=== PATIENT | female | born 1960 | race Caucasian/White ===

== ENCOUNTER 2023-10-21 09:05 | Emergency (ER) | payer BC, SELFPAY ==
[2023-10-21 09:09] VITALS: BP 142/94; PULSE 106; RESP 20; TEMP 36.7; O2SAT 97; BMI 40.7
--- NOTE | 2023-10-21 09:35 | ED_ITS ---
HPI - General Adult General Date Seen: 10/21/23 Chief complaint: Shortness of Breath/Dyspnea Stated complaint: Cough, short of breath, lethargy Time Seen by Provider: 10/21/23 09:35 History of Present Illness HPI narrative: 63-year-old female presents to the ER this morning for evaluation of cough, fatigue, body aches, nausea and vomiting. 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 She does have a history of sarcoidosis which makes her prone to pulmonary infections. No history of asthma or COPD. No history of diabetes or cancer or other immunosuppression. She is a nonsmoker. She developed a cough 2 days ago on Sunday. Yesterday cough is ongoing and she also developed significant fatigue, sleepiness, body aches, myalgias, and decreased energy. She also developed a little bit of chest tightness affecting both sides of her chest and mild shortness of breath yesterday. She has had a fever yesterday as high as 100.7. Nausea and vomiting started this morning. She is also having mild shortness of breath and some rib pain with coughing. No history of coronary disease. No history of DVT or PE. No recent travel. No leg swelling. No rashes. Related Data Home Medications Medication Instructions Recorded Confirmed atorvastatin 10 mg tablet 10 mg PO QPM 10/21/23 10/21/23 fluconazole 150 mg tablet mg PO 10/21/23 metformin 500 mg tablet 1,000 mg PO BID 10/21/23 10/21/23 semaglutide 0.25 mg or 0.5 mg (2 mg subcut 10/21/23 mg/3 mL) subcutaneous pen injector (Ozempic) venlafaxine 150 mg 150 mg PO QPM 10/21/23 10/21/23 capsule,extended release 24 hr Previous Rx's Medication Instructions Recorded albuterol sulfate 90 mcg/actuation 2 inh inhalation Q4H PRN shortness 10/21/23 aerosol inhaler of breath or wheezing #6.7 grams ondansetron 4 mg disintegrating 4 mg PO Q8H PRN nausea and 10/21/23 tablet vomiting #10 tabs oseltamivir 75 mg capsule (Tamiflu) 75 mg PO BID 5 days #10 caps 10/21/23 Allergies Allergy/AdvReac Type Severity Reaction Status Date / Time adhesive tape Allergy Mild hives, Verified 10/21/23 09:15 itchy [facility] Social History Smoking Status: Never smoker How often do you have a drink containing alcohol: never How often do you have six or more drinks on one occasion: Never AUDIT-C Alcohol total score: 0 Non-prescribed substance use: denies use Exam Narrative: Exam Narrative: Constitutional: Appears well-developed and well-nourished. Alert. Uncomfortable appearing. Just finish vomiting and has a small amount of liquidy emesis in her emesis bag. Mildly sweaty. Feels warm to the touch and febrile. Not diaphoretic or mottling or cyanotic. HENT: Head: Atraumatic. Nose: Nose normal. Mouth/Throat: Oral mucosa is clear but somewhat dry, not desiccated or cracked.. no trismus. Pharynx normal. Tonsils symmetric. No tonsillar enlargement, erythema, or exudate. Eyes: Conjunctivae normal. EOM normal. Pupils equal, round, and reactive to light. No scleral icterus. Neck: Normal range of motion. Neck supple. No tracheal deviation present. Cardiovascular: Tachycardic, about 105 beats per minute, regular rhythm. No gallop. No friction rub. No murmur heard. Symmetric radial artery pulses Pulmonary/Chest: Frequent dry cough. Effort normal. No stridor. No respiratory distress. Bilateral mild wheezes. Overall good aeration. No rales. No rhonchi . No tenderness. Abdominal: Soft. Bowel sounds normal. No distension. No mass. No tenderness. No rebound. No guarding. Musculoskeletal: RUE: Normal range of motion. No tenderness. No deformity LUE: Normal range of motion. No tenderness. No deformity RLE: Normal range of motion. No edema. No tenderness. No deformity LLE: Normal range of motion. No edema. No tenderness. No deformity Lymph: No cervical adenopathy. Neurological: Alert and oriented to person, place, and time. Normal strength. CN II-VII intact. No sensory deficit. GCS eye subscore is 4. GCS verbal subscore is 5. GCS motor subscore is 6. Normal coordination Skin: Skin is warm and dry. No rash noted. No pallor. Normal capillary refill. Psychiatric: Normal mood. Normal affect allowing for nausea and discomfort. Const: Vital Signs, click to edit/add: Vital Signs - 24 hr 10/21/23 09:09 10/21/23 09:53 10/21/23 10:21 Temperature 98.1 F Pulse Rate [Right Pulse Oximeter] 106 H 112 H 99 Respiratory Rate 20 Blood Pressure [Ri ght Upper Arm] 142/94 H Pulse Oximetry 97 97 95 Oxygen Delivery Me thod Room Air Room Air Room Air 10/21/23 10:40 10/21/23 11:15 Temperature Pulse Rate [Right Pulse Oximeter] 101 H 97 Respiratory Rate Blood Pressure [Ri ght Upper Arm] 158/84 H 145/72 H Pulse Oximetry 96 94 Oxygen Delivery Me thod Room Air Room Air Course Course ED Course: Recheck-nausea resolved after Zofran. Feeling better after fluids. Heart rate down into the 90s. After the nebulizer she feels like her chest tightness is much better. Repeat lung exam reveals a few scattered ongoing wheezes but much improved compared to initial exam. Tamiflu 75 mg p.o. administered. Reevaluation(s) Reevaluation #1: He recheck-labs back and a reassuring. Patient still feels much better. She is comfortable discharging home. Vital Signs Vital signs: Initial Vital Signs Temperature 98.1 F 10/21/23 09:09 Temperature Source Temporal Artery Scan 10/21/23 09:09 Pulse Rate 106 H 10/21/23 09:09 Respiratory Rate 20 10/21/23 09:09 Blood Pressure 142/94 H 10/21/23 09:09 Blood Pressure Mean 110 H 10/21/23 09:09 Blood Pressure Position Sitting 10/21/23 09:09 Pulse Oximetry 97 10/21/23 09:09 Oxygen Delivery Method Room Air 10/21/23 09:09 Vital Signs Temperature 98.1 F 10/21/23 09:09 Pulse Rate 106 H 10/21/23 09:09 Respiratory Rate 20 10/21/23 09:09 Blood Pressure 142/94 H 10/21/23 09:09 Pulse Oximetry 97 10/21/23 09:09 Oxygen Delivery Method Room Air 10/21/23 09:09 Temperature 98.1 F 10/21/23 09:09 Pulse Rate 97 10/21/23 11:15 Respiratory Rate 20 10/21/23 09:09 Blood Pressure 145/72 H 10/21/23 11:15 Pulse Oximetry 94 10/21/23 11:15 Oxygen Delivery Method Room Air 10/21/23 11:15 Medications Administered Medications: Discontinued Medications Generic Name Dose Route Start Last Admin Trade Name [place] PRN Reason Stop Dose Admin Albuterol/Ipratropium 1 neb 10/21/23 10:01 10/21/23 10:16 Iprat-Albut 0.5-2.5 Mg/3 Ml Neb IH 10/21/23 10:02 1 neb ONCE ONE Administration Sodium Chloride 1,000 mls @ 1,000 mls/hr 10/21/23 10:00 10/21/23 11:14 0.9 % Sodium Chloride 1000 Ml IV 10/21/23 10:59 Infused .Q1H ENRIQUETA Infusion Ondansetron HCl 4 mg 10/21/23 10:01 10/21/23 10:09 Ondansetron 2 Mg/Ml Inj IVP 10/21/23 10:02 4 mg ONCE ONE Administration Oseltamivir Phosphate 75 mg 10/21/23 10:24 10/21/23 10:37 Oseltamivir Phosphate 75 Mg Capsule PO 10/21/23 10:25 75 mg ONCE ONE Administration Medical Decision Making MDM Narrative Medical decision making narrative: This patient presents for evaluation of cough, fever, and myalgias, as well as nausea and vomiting.. This is consistent with an influenza like illness. He PCR is positive for influenza A. Negative for COVID, RSV. Patient meets criteria for treatment because the have high-risk features for severe illness, since she has sarcoidosis the. Additionally she has had symptoms barely less than 48 hours, meets criteria for treatment with oseltamvir and medications ordered as noted above. They are at risk for pneumonia but no signs of this are detected on today's visit. Chest x-ray reassuring. She does have wheezing which was likely viral induced bronchospasm. Her improved with her bronchodilator nebs given here in the ER. Will discharge home with prescription for albuterol. She actually says she has in previous albuterol inhaler from when she had pneumonia last fall so she will use that 1st, writhing feel the new prescription. Will also put her on Tamiflu. Zofran to prevent nausea and dehydration. Discussed influenza isolation precautions. 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 Close followup of primary care physician is indicated and return to the ED for high fevers > 103 for more than 48 hours more, increasing productive cough, shortness of breath, or confusion. There is no signs of serious bacterial infection such as bacteremia, meningitis, UTI/pyelonephritis, strep pharyngitis, etc. Lab Data Labs: Lab Results 10/21/23 10/21/23 Range/Units 09:17 10:00 WBC 5.49 (4.50-11.00) K/uL RBC 5.30 H (4.00-5.20) m/uL Hgb 15.3 (12.0-16.0) gm/dL Hct 46.3 (33.0-51.0) % MCV 87 (80-100) fL MCH 29 (26-34) pg MCHC 33 (32-36) gm/dL RDW Coeff of [place] 13.0 (11.5-15.5) % Plt Count 208 (140-440) K/uL Neut % (Auto) 76.5 H (42.0-72.0) % Lymph % (Auto) 12.9 L (20-44) % [place] % (Auto) 8.9 (0.0-11.0) % Eos % (Auto) 0.9 (0.0-7.0) % Baso % (Auto) 0.4 (0.0-3.0) % Neut # (Auto) 4.20 (1.7-7.0) K/uL Lymph # (Auto) 0.70 L (0.90-2.90) K/uL [place] # (Auto) 0.50 (0.00-0.90) K/UL Eos # (Auto) 0.05 (0.00-0.50) K/uL Baso # (Auto) 0.02 (0.00-0.30) K/uL Abs Immat Gran (auto) 0.02 (0.00-0.30) K/uL Imm/Tot Granulo (auto) 0.4 % Sodium 137 (135-149) mmol/L Potassium 4.1 (3.6-5.1) mmol/L Chloride 101 (96-114) mmol/L Carbon Dioxide 26 (20-32) mmol/L Anion Gap 10 (7-15) mEq/L BUN 12 (7-30) mg/dL Creatinine 0.7 (0.5-1.5) mg/dL Estimated Creat Clear 56.72 Estimated GFR 98 ml/min Glucose 183 H (60-115) mg/dL Calcium 9.1 (8.4-10.6) mg/dL SARS-CoV-2 (PCR) Negative SARS-CoV-2 (Negative) Influenza Type A (PCR) POSITIVE PCR FLU A A (Negative) Influenza Type B (PCR) Negative PCR FLU B (Negative) RSV (PCR) Negative PCR RSV (Negative) ECG Data Attestation: I personally reviewed and interpreted this ECG as follows: Interpretation: Normal sinus rhythm . Rate 96 [place] 150. QRS axis normal axis. No pathologic Q-waves. ST segment/T wave: No ST segment elevation or depression. Normal T-waves. QTc: 452 Discharge Plan Discharge Clinical Impression: Influenza A, Acute bronchospasm, Vomiting Patient Disposition: Home, Self-Care Condition: Stable Instructions: Influenza (DC), Acute Nausea and Vomiting (DC), Bronchospasm (ED) Additional Instructions: As we discussed, please come back to the ER right away if you have worsening symptoms; especially if you have worsening trouble breathing, high fever, weakness, dizziness, uncontrolled vomiting, or dehydration. Use albuterol every 4 hours if needed for shortness of breath or chest tightness to treat wheezing. Use Zofran if needed for nausea. Tried drink plenty of fluids and stay hydrated. At solid foods when you feel up to it. You can return to work when your symptoms are improving and after fever has been gone for 24 hours. Prescriptions: New oseltamivir [Tamiflu] 75 mg capsule 75 mg PO BID 5 Days Qty: 10 0RF albuterol sulfate 90 mcg/actuation HFA aerosol inhaler 2 inh inhalation Q4H PRN (Reason: shortness of breath or wheezing) Qty: 6.7 0RF ondansetron 4 mg tablet,disintegrating 4 mg PO Q8H PRN (Reason: nausea and vomiting) Qty: 10 0RF No Action metformin 500 mg tablet 1,000 mg PO BID atorvastatin 10 mg tablet 10 mg PO QPM fluconazole 150 mg tablet PO venlafaxine 150 mg capsule,extended release 24hr 150 mg PO QPM Ozempic 0.25 mg or 0.5 mg (2 mg/3 mL) pen injector subcut Follow Up/Referrals: Bernadette Galicia PA-C [Primary Care Provider] - Stand Alone Forms: [employer] Info Instructions
[2023-10-21 09:53] VITALS: PULSE 112; O2SAT 97
--- NOTE | 2023-10-21 09:54 | CRLHL7_ITS ---
For Patients: As a result of the Cures Act, medical imaging exams and procedure reports are released immediately into your electronic medical record. You may view this report before your referring provider. If you have questions, please contact your health care provider. INDICATION: Cough. Right lower lobe rales. COMPARISON: Chest x-ray dated 10 May 2020. FINDINGS: PA and lateral chest x-rays show a normal cardiac silhouette. The lungs show no focal pulmonary opacities. Sharp pleural margins. No pneumothorax. IMPRESSION: No focal pulmonary opacities. No pneumothorax. Dictated by Douglas Marrero MD @ 10/21/2023 11:13:54 AM Dictated by: Douglas Marrero MD @ 10/21/2023 11:14:03 (Electronically Signed)
[2023-10-21 10:09] LABS: PCR FLU A POSITIVE PCR FLU A (Negative); PCR FLU B Negative PCR FLU B (Negative); PCR RSV Negative PCR RSV (Negative); SARS PCR* Negative SARS-CoV-2 (Negative)
[2023-10-21] MEDS: ONDANSETRON 2 MG/ML inj 4 MG IVP (10:09)
[2023-10-21] MEDS: 0.9 % SODIUM CHLORIDE 1000 ml 1,000 ML IV (10:09)
[2023-10-21 10:10] LABS: Basophils Absolute Auto 0.02 K/uL (0.00-0.30); Basophils Percent Auto 0.4 % (0.0-3.0); Eosinophils Absolute Auto 0.05 K/uL (0.00-0.50); Eosinophils Percent Auto 0.9 % (0.0-7.0); Hematocrit 46.3 % (33.0-51.0); Hemoglobin* 15.3 gm/dL (12.0-16.0); Immature Granulocytes Abs Auto 0.02 K/uL (0.00-0.30); Immature Granulocytes Pct Auto 0.4 %; Lymphocytes Percent Auto 12.9 % (20-44); Mean Corpuscular HGB Conc 33 gm/dL (32-36); Mean Corpuscular Hemoglobin 29 pg (26-34); Mean Corpuscular Volume 87 fL (80-100); Monocytes Percent Auto 8.9 % (0.0-11.0); Neutrophils Percent Auto 76.5 % (42.0-72.0); Platelet Count* 208 K/uL (140-440); White Blood Count* 5.49 K/uL (4.50-11.00)
[2023-10-21] MEDS: IPRAT-ALBUT 0.5-2.5 MG/3 ML NEB 1 NEB IH (10:16)
[2023-10-21 10:20] LABS: Slide Review Reflex No
[2023-10-21 10:21] VITALS: PULSE 99; O2SAT 95
[2023-10-21 10:23] LABS: Chloride* 101 mmol/L (96-114); Potassium* 4.1 mmol/L (3.6-5.1); Sodium* 137 mmol/L (135-149)
[2023-10-21 10:25] LABS: Creatinine* 0.7 mg/dL (0.5-1.5); Est. Creatinine Clearance* 56.72; Estimated Glomerular Filt Rate 98 ml/min
[2023-10-21 10:26] LABS: Anion Gap 10 mEq/L (7-15); Blood Urea Nitrogen* 12 mg/dL (7-30); Calcium* 9.1 mg/dL (8.4-10.6); Carbon Dioxide* 26 mmol/L (20-32); Glucose* 183 mg/dL (60-115)
[2023-10-21] MEDS: OSELTAMIVIR PHOSPHATE 75 MG CAPSULE PO (10:37)
[2023-10-21 10:40] VITALS: BP 158/84; PULSE 101; O2SAT 96
[2023-10-21 11:15] VITALS: BP 145/72; PULSE 97; O2SAT 94
== END 2023-10-21 11:53 | disposition home or self-care (01) ==
PROVIDERS: Emergency Provider Emergency Medicine; PCP Physician Assistant
DX: J10.2 Influenza due to other identified influenza virus with gastrointestinal manifestations (principal); J98.01 Acute bronchospasm
CPT/HCPCS: 36415; 71046; 80048; 85025; 87631; 93005; 94640; 96361; 96374; 99284; 99285; A9270; J2405; J7030

== ENCOUNTER 2023-12-29 06:09 | Emergency (ER) | payer BC, SELFPAY ==
[2023-12-29 06:22] VITALS: BP 141/88; PULSE 91; RESP 18; TEMP 37.1; O2SAT 96; BMI 40.7
--- NOTE | 2023-12-29 06:36 | ED.GENADULT ---
HPI - General Adult General Chief complaint: Edema Stated complaint: right side facial swelling Time Seen by Provider: 12/29/23 06:27 History of Present Illness HPI narrative: Patient is a 63-year-old woman who over last 24 hours has had increased swelling and pain in the right parotid. She has no ear pain no mouth pain no pharynx pain no fevers no chills no night sweats no cough no shortness of breath. She has been placing warm compresses on the right side of her jaw but has had no improvement. No similar symptoms previously. Her comorbidities include diabetes and hypertension. Related Data Home Medications Medication Instructions Recorded Confirmed atorvastatin 10 mg tablet 10 mg PO QPM 10/21/23 10/21/23 fluconazole 150 mg tablet mg PO 10/21/23 metformin 500 mg tablet 1,000 mg PO BID 10/21/23 10/21/23 semaglutide 0.25 mg or 0.5 mg (2 mg subcut 10/21/23 mg/3 mL) subcutaneous pen injector (Ozempic) venlafaxine 150 mg 150 mg PO QPM 10/21/23 10/21/23 capsule,extended release 24 hr Previous Rx's Medication Instructions Recorded albuterol sulfate 90 mcg/actuation 2 inh inhalation Q4H PRN shortness 10/21/23 aerosol inhaler of breath or wheezing #6.7 grams ondansetron 4 mg disintegrating 4 mg PO Q8H PRN nausea and 10/21/23 tablet vomiting #10 tabs oseltamivir 75 mg capsule (Tamiflu) 75 mg PO BID 5 days #10 caps 10/21/23 Allergies Allergy/AdvReac Type Severity Reaction Status Date / Time adhesive tape Allergy Mild hives, Verified 10/21/23 09:15 itchy Review of Systems Status of ROS: Reports: 10 or more systems reviewed and unremarkable except as noted in History and below [facility] Social History Smoking Status: Never smoker How often do you have a drink containing alcohol: never How often do you have six or more drinks on one occasion: Never AUDIT-C Alcohol total score: 0 Non-prescribed substance use: denies use Exam Narrative: Exam Narrative: EXAM GENERAL: Patient appears comfortable. She does have significant swelling over the right parotid. Mild regional lymphadenopathy also noted. EYES: No scleral icterus. ENT: Tympanic membranes and oropharynx normal. THYROID: no thyroid nodules or thyromegaly. LYMPH: No supraclavicular or cervical lymphadenopathy. SKIN: Visible skin seen during exam normal or with benign process only. EXT: No dependent lower extremity pedal edema. HEART: Regular rate and rhythm with no murmurs, rubs, or gallops. LUNGS: Clear to auscultation bilaterally with no crackles or wheezes. ABD: Soft, non tender, non distended. PSYCH: Good eye contact, speech is not pressured. Const: Vital Signs, click to edit/add: Vital Signs - 24 hr 12/29/23 06:22 Temperature 98.8 F Pulse Rate [Left P ulse Oximeter] 91 Respiratory Rate 18 Blood Pressure [Ri ght Upper Arm] 141/88 H Pulse Oximetry 96 Oxygen Delivery Me thod Room Air Course Course ED Course: Patient seen and examined. Vital Signs Vital signs: Initial Vital Signs Temperature 98.8 F 12/29/23 06:22 Temperature Source Oral 12/29/23 06:22 Pulse Rate 91 12/29/23 06:22 Pulse Rhythm Regular 12/29/23 06:22 Respiratory Rate 18 12/29/23 06:22 Blood Pressure 141/88 H 12/29/23 06:22 Blood Pressure Mean 105 12/29/23 06:22 Blood Pressure Position Sitting 12/29/23 06:22 Pulse Oximetry 96 12/29/23 06:22 Oxygen Delivery Method Room Air 12/29/23 06:22 Vital Signs Temperature 98.8 F 12/29/23 06:22 Pulse Rate 91 12/29/23 06:22 Respiratory Rate 18 12/29/23 06:22 Blood Pressure 141/88 H 12/29/23 06:22 Pulse Oximetry 96 12/29/23 06:22 Oxygen Delivery Method Room Air 12/29/23 06:22 Temperature 98.8 F 12/29/23 06:22 Pulse Rate 91 12/29/23 06:22 Respiratory Rate 18 12/29/23 06:22 Blood Pressure 141/88 H 12/29/23 06:22 Pulse Oximetry 96 12/29/23 06:22 Oxygen Delivery Method Room Air 12/29/23 06:22 Medical Decision Making MDM Narrative Medical decision making narrative: Patient presents with right-sided parotitis without significant symptoms of sepsis. He is able to eat and drink. She has otherwise normal exam. I did consider imaging holes laboratory studies been do not believe that would be helpful. I also do not believe that she has systemic mumps says her symptoms are unilateral. I did place her on Augmentin 875 p.o. b.i.d. as well as warm compresses and lemon drops. If symptoms worsen I would recommend return for IV antibiotics and full laboratory and imaging exam. Differential diagnosis includes but not limited to paratitis mumps viral syndrome otitis media TMJ mastoiditis. Discharge Plan Discharge Clinical Impression: Acute parotitis Condition: Stable Instructions: Sialoadenitis (ED) Additional Instructions: Augmentin Lemon drops Tylenol Motrin Warm compresses Activity Level: No Restrictions Discharge Diet: Regular Prescriptions: No Action metformin 500 mg tablet 1,000 mg PO BID atorvastatin 10 mg tablet 10 mg PO QPM fluconazole 150 mg tablet PO venlafaxine 150 mg capsule,extended release 24hr 150 mg PO QPM Ozempic 0.25 mg or 0.5 mg (2 mg/3 mL) pen injector subcut oseltamivir [Tamiflu] 75 mg capsule 75 mg PO BID 5 Days Qty: 10 0RF albuterol sulfate 90 mcg/actuation HFA aerosol inhaler 2 inh inhalation Q4H PRN (Reason: shortness of breath or wheezing) Qty: 6.7 0RF ondansetron 4 mg tablet,disintegrating 4 mg PO Q8H PRN (Reason: nausea and vomiting) Qty: 10 0RF Follow Up/Referrals: Bernadette Galicia PA-C [Primary Care Provider] - Stand Alone Forms: [employer] Info Instructions
--- NOTE | 2023-12-29 10:49 | ED.NURSE ---
Pt called ED stating that she received a printed rx from Dr. Avitia but it was never signed. Reviewed Doctor's dictation and printed Rx with Pt. Called Anabel Oliveira and gave verbal order for Augmentin 875mg PO BID x7 days, no refills.
== END 2023-12-29 06:51 | disposition home or self-care (01) ==
LOC: ED 06:45
PROVIDERS: Emergency Provider Internal Medicine; PCP Physician Assistant
DX: K11.20 Sialoadenitis, unspecified (principal)
CPT/HCPCS: 99283

== ENCOUNTER 2025-01-28 09:45 | Emergency (ER) | payer BC, SELFPAY ==
--- OUTSIDE RECORDS SUMMARY | 2025-01-28 09:48 | XMS_ITS | Clinical Summary ---
Author Organization [facility] Address [address] [place] [address] Care Team Providers Care Stamp Redemption Clerk Name Role Phone Unavailable Primary Care Provider Unavailabl e Source Comments Patient records contain information from all sites at [facility]. For routine questions regarding patient records, call [phone] during business hours, M-F 8:00 AM - 5:00 PM Central Time. Record requests for emergency care only can be directed to [phone] at any time.[facility] Allergies No known active allergies Medications methylPREDNISolo ne (MedroL DosePak) 4 mg tablet Follow package directions. 21 tablet 04/28/2024 Active amoxicillin-pot clavulanate (Augmentin) 875-125 mg per tablet Take 1 tablet by mouth 2 (two) times a day. 20 tablet 04/28/2024 Active Social History Tobacco Use Types Packs/Day Years Used Date Smoking Tobacco: Never Assessed [facility] Utilities Answer Date Recorded In the past 12 months has e [employer], oil, or water [employer] threatened to shut off services in your home? No 08/11/2024 Exercise Vital Sign Answer Date Recorde d On average, how many days pe r week do you engage in moderate to strenuous exercise (like a brisk walk)? 0 days 08/11/2024 On average, how many minutes do you engage in exercise at this level? 0 min 08/11/2024 Hunger Vital Sign Answer Date Recorded Within the past 12 months, y ou worried that your food would run out before you got the money to buy more. Never true 08/11/20 Within the past 12 months, t he food you bought just didn't last and you didn't have money to get more. Never true 08/11/2024 PRAPARE - Transportation Answer Date Re corded In the past 12 months, has l ack of transportation kept you from medical appointments or from getting medications? No 07/19 In the past 12 months, has l ack of transportation kept you from meetings, work, or from getting things needed for daily living? No 08/11/2024 Nutrition Answer Date Recorded On average, how many serving s of fruits and vegetables do you eat per day (serving size is equal to 1 cup or approximately the size of a tennis ball)? 3-5 08/11/2024 Dental Answer Date Recorded Dental: Regular Dentist No 08/11/20 Employment Answer Date Recorded Employment status Employed and actively working without restrictions 08/11/2024 Housing Stability Answer Date Recorded What is your living situation today? I have a [facility] place to live 08/11/2024 Comments Unknown Sex and Gender Information Value Date Recorded Sex Assigned at Female 08/11/2024 2:20 AM HALL DIRECTOR Legal Sex Female 11:51 AM HALL DIRECTOR Gender Identity Female 08/11/2024 2:20 AM HALL DIRECTOR Sexual Orientation Straight 08/11/2024 2: 20 AM HALL DIRECTOR Plan of Treatment Health Maintenance Due Date Last Done Comments CT Colonography 1961 Cologuard 1961 Colonoscopy 1961 Colorectal Cancer Screening 1961 FIT 1961 HIV Screening 1961 Hepatitis C Screening 1961 Zoster Vaccines (1 of 2) 2011 Pneumococcal vaccine (50+ years) (2 of 2 - PCV) 03/09/2012 03/09/2011 DTaP,Tdap,and Td Vaccines (2 - Td or Tdap) 05/30/2021 05/30/2011 COVID-19 Vaccine (3 - season) 2024 06/13/2021, 05/11/2021 Influenza Vaccine (#1) 2024 8, 10/17/2016, 06/28/2015, Additional history exists Depression Screening (Annual PHQ-2) 09/17/2024 Mammogram 09/18/2024 09/18/2023, 10/2023, 08/22/2022, Additional history exists Fasting Glucose for Diabetes Screening 01/10/2027 01/11/2024, 01/18/2023, 04/18/2022, Additional history exists Lipid (Cholesterol) Screening 01/10/2029 01/11/2024, 01/18/2023 IPV Vaccines Aged Out No longer eligi ble based on patient's age to complete this topic Insurance [address] [place] [id number] [facility]
--- OUTSIDE RECORDS SUMMARY | 2025-01-28 09:48 | XMS_ITS | Clinical Summary ---
Author Organization [place] Address [facility] [place] [address] Care Team Providers Care Security Systems Administrator Name Role Phone Cierra Marie MD Primary Care Provider [phone] Allergies No known active allergies Medications venlafaxine (EFFEXOR-XR) 150 MG 24 hr capsule Take 150 mg by mouth daily Active Active Problems Problem Noted Date Diagnosed Date Suspected COVID-19 virus infection 12/26/2019 Social History Tobacco Use Types Packs/Day Years Used Date Smoking Tobacco: Never Alcohol Use Standard Drinks/Week Comments No 0 (1 standard drink = 0.6 oz pur e alcohol) Adolescent Education Answer Date Record ed Getting School Help Needed Not on file 06/23 Comments Unknown Sex and Gender Information Value Date Recorded Sex Assigned at Not on file Legal Sex Female 3:39 AM 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 Gender Identity Not on file Sexual Orientation Not on file Last Filed Vital Signs Vital Sign Reading Time Taken Comments Blood Pressure 145/91 05/27/2020 5:30 PM CDT Pulse 109 05/27/2020 5:30 PM CDT Temperature 36.6 C (97.8 F) 05/27/2020 12:28 PM CDT Respiratory Rate 20 05/27/2020 12:28 PM CDT Oxygen Saturation 98% 05/27/2020 5:30 PM CDT Inhaled Oxygen Concentration - - Weight 113.4 kg (250 lb) 05/27/2020 12:28 PM CDT Height 170.2 cm (5' 7) 05/27/2020 12:28 PM CDT Body Mass Index 39.16 05/27/2020 12:28 PM CDT Plan of Treatment Health Maintenance Due Date Last Done Comments ADVANCE CARE PLANNING 1961 ANNUAL REVIEW OF HM ORDERS 1961 CT COLONOGRAPHY 1961 FIT 1961 FLEX SIG 1961 MAMMO SCREENING 1961 sDNA (Cologuard) 1961 YEARLY PREVENTIVE VISIT 1964 COLONOSCOPY 1971 COLORECTAL CANCER SCREENING 1971 HIV SCREENING 1976 HEPATITIS C SCREENING 1979 PAP 1982 LIPID 2001 ZOSTER IMMUNIZATION (1 of 2) 2011 Pneumococcal Vaccine: 50+ Years (2 of 2 - PCV) 03/09/2012 03/09/2011 DTAP/TDAP/TD IMMUNIZATION (2 - Td or Tdap) 05/30/2021 05/30/2011, 10/07/2003, 12/20/1994 DIABETES SCREENING 05/27/2023 05/27/2020, 12/26/2019 COVID-19 Vaccine ( - season) 2024 06/13/2021, 05/11/2021 PHQ-2 (once per calendar year) 2024 INFLUENZA VACCINE (Season Ended) 2025 07/08/2018, 10/17/2016, 06/28/2015, Additional history exists RSV VACCINE (1 - 1-dose 75+ series) 2036 HPV IMMUNIZATION Aged Out No longer e ligible based on patient's age to complete this topic MENINGITIS IMMUNIZATION Aged Out No l onger eligible based on patient's age to complete this topic Procedures Procedure Name Priority Date/Time Associated Diagnosis Comments BASIC METABOLIC PANEL STAT 05/27/2020 1:02 PM CDT from Last 3 Months or Most Recently Relevant to Health Maintenance Results * (ABNORMAL) Basic metabolic panel (05/27/2020 1:02 PM CDT) Sodium 137 133 - 144 mmol/L 05/27/2020 1:[address] [facility] Potassium 4.2 3.4 - 5.3 mmol/L [facility]/27[facility]2020 [facility] Chloride 104 94 - 109 mmol/L 05/27/2020 1:[address] [facility] Carbon Dioxide 27 20 - 32 mmol/L 05/27/2020 1:[address] [facility] Anion Gap 6 3 - 14 mmol/L 05/27/2020 1:[address] [facility] Glucose 226(H) 70 - 99 mg/dL 05/27/2020 1:[address] [facility] Urea Nitrogen 12 7 - 30 mg/dL 05/27/2020 1:[address] [facility] Creatinine 0.69 0.52 - 1.04 mg/dL 05/27/2020 1:32 PM [facility] GFR Estimate >90 >60 mL/min/{1. 73_m2} 05/27/2020 1:[address] [facility] Comment: Non GFR Calc Starting 09/03/2018, serum creatinine based estimated GFR (eGFR) will be calculated using the Chronic Kidney Disease Epidemiology Collaboration (CKD-EPI) equation. GFR Estimate If Black >90 >60 mL/min/{1. 73_m2} 05/27/2020 1:[address] [facility] Comment: GFR Calc Starting 09/03/2018, serum creatinine based estimated GFR (eGFR) will be calculated using the Chronic Kidney Disease Epidemiology Collaboration (CKD-EPI) equation. Calcium 8.9 8.5 - 10.1 mg/dL 05/27/2020 1:[address] [facility] Blood specimen (specimen) 05/27/2020 1:02 PM CDT 05/27/2020 1:12 PM CDT us Garrett Richardson DO LAB - BLOOD ORDERABLES F inal Result [facility] [address] [place] [address], [facility] [phone] from Last 3 Months or Most Recently Relevant to Health Maintenance Insurance [id number] [place] [id number] [employer] Advance Directives For more information, please contact: [phone] * Full Code (Latest Code Status on File) Date Activated Date Inactivated Comments 12/27/2019 12:01 PM 05/27/2020 12:23 PM Question Answer Comments Code status determined by: Discussion with jackson nt/legal decision maker Care Teams Security Systems Administrator Relationship Specialty Start Date End Date Cierra Marie MD PCP - General Family Practice 10/18/14
--- OUTSIDE RECORDS SUMMARY | 2025-01-28 09:48 | XMS_ITS | Patient Health Record ---
Author Organization [facility], [facility] Address [address] [place] [address] Support Name Relationship Address Phone Sofia Blue Guarantor Unknown [phone] Reason For Referral No Information Plan Of Treatment No Information Insurance Providers Payer Name Payer Address Payer Phone Subscriber Number Group Number Insured Name Patient Relationship to Insured Coverage Start Date Coverage End Date [facility] [address] [id number] [phone] Sofia Blue Self - patient is the insured
--- OUTSIDE RECORDS SUMMARY | 2025-01-28 09:48 | XMS_ITS | Clinical Summary ---
Author Organization [facility] Address [address] [place] [id number] Care Team Providers Care Real Estate Sales Agent Name Role Phone Bernadette Galicia Primary Care Provider [phone] Allergies Active Allergy Reactions Criticality Noted Date Comments Adhesive Tape Itching Medications omega-3 fatty acids-vitamin E (FISH OIL) 1,000 mg cap Take by mouth. 0 07/11/20 12 Active cholecalciferol (VITAMIN D-3) 2,000 unit capsule Take 1 capsule by mouth once daily. 0 11/21/19 18 Active CPAPIndications :Obstructive sleep apnea,Fatigue, unspecified type CPAP machine for home use at pressure: 4.6-16 cmw , Heated humidifier x 1 q 5 yr, Humidifier chamber x 1 q 6 mo, nasal mask x1 q 3mos, with cushion x 2 q mo, Heated tubing x 1 q 3 mo, Headgear x 1 q 6 mo, Filters: Disposable x 2 q mo non-disposable filters x1 q 6mo, Length of Need: 99 months, Frequency of use: Daily 1 Each 05/31/20 21 Active albuterol HFA (PRO-AIR; VENTOLIN; PROVENTIL) 90 mcg/actuation inhaler Inhale by mouth. 10/21/19 24 Active nebulizer accessories kitIndications: Influenza A,Wheezing For home use. Length of need: prn 1 Kit 10/25/19 24 Active blood-glucose meterIndication s:Type 2 diabetes mellitus without complication, without long-term current use of insulin (HC) Dispense meter covered by pts insurance. 1 Each 08/09/20 24 Active lancetsIndicati ons:Type 2 diabetes mellitus without complication, without long-term current use of insulin (HC) As directed. Test 1-2 times per day. 200 Each 3 08/09/20 24 Active blood sugar diagnostic stripIndication s:Type 2 diabetes mellitus without complication, without long-term current use of insulin (HC) Dispense item covered by pt ins. E11.9 NIDDM type II - Test 2 times/day. Reason: High A1C 200 Each 3 08/09/20 24 Active NebulizerIndica tions:Sarcoidos is,Wheezing Nebulizer, disposable neb kit x 4, reuseable neb kit x 1, mask x 1, filters x 1. Frequency of use: daily; Medication: albuterol Length of need: prn months 1 Each 09/02/20 24 Active pen tirzepatide 10 mg/0.5 mL penIndications: Type 2 diabetes mellitus without complication, without long-term current use of insulin (HC) Inject 10 mg subcutaneous once weekly. 6 mL 2 01/07/20 25 Active losartan 50 mg tabletIndicatio ns:HTN (hypertension) Take 1 Tablet (50 mg) by mouth once daily. 90 Tablet 3 01/07/20 25 Active atorvastatin 10 mg tabletIndicatio ns:Type 2 diabetes mellitus without complication, without long-term current use of insulin (HC) Take 1 Tablet (10 mg) by mouth once daily. 90 Tablet 3 01/07/20 25 Active metFORMIN 500 mg Extended-Releas e tabletIndicatio ns:Type 2 diabetes mellitus without complication, without long-term current use of insulin (HC) Take 2 Tablets (1,000 mg) by mouth two times daily with meals. 360 Tablet 1 01/07/20 25 Active venlafaxine 150 mg Extended-Releas e capsuleIndicati ons:Situational mixed anxiety and depressive disorder Take 1 Capsule (150 mg) by mouth once daily with evening meal. 90 Capsule 3 01/07/20 25 Active albuterol 0.083% (2.5 mg/3 mL) neb solutionIndicat ions:Influenza A,Wheezing Inhale 3 mL (2.5 mg) via a nebulizer every 6 hours if needed for Cough 1st choice. 180 mL 10/25/19 24 025 Discontin ued(*Med complete/ Regimen complete/ Level of care change) metFORMIN (GLUCOPHAGE XR) 500 mg Extended-Releas e tabletIndicatio ns:Type 2 diabetes mellitus without complication, without long-term current use of insulin (HC) TAKE TWO TABLETS BY MOUTH TWICE A DAY WITH MEALS 360 Tablet 10/13/19 25 025 Discontin ued(*Med complete/ Regimen complete/ Level of care change) atorvastatin (LIPITOR) 10 mg tabletIndicatio ns:Type 2 diabetes mellitus without complication, without long-term current use of insulin (HC) Take 1 Tablet (10 mg) by mouth at bedtime. 90 Tablet 10/13/19 25 025 Discontin ued(*Med complete/ Regimen complete/ Level of care change) atorvastatin (LIPITOR) 10 mg tabletIndicatio ns:Type 2 diabetes mellitus without complication, without long-term current use of insulin (HC) Take 1 Tablet (10 mg) by mouth once daily. 90 Tablet 10/14/19 25 025 Discontin ued(Reord er (E-cancel not sent)) metFORMIN (GLUCOPHAGE XR) 500 mg Extended-Releas e tabletIndicatio ns:Type 2 diabetes mellitus without complication, without long-term current use of insulin (HC) Take 2 Tablets (1,000 mg) by mouth two times daily with meals. 180 Tablet 10/14/19 25 025 Discontin ued(Reord er (E-cancel not sent)) venlafaxine (EFFEXOR XR) 150 mg Extended-Releas e capsuleIndicati ons:Situational mixed anxiety and depressive disorder Take 1 Capsule (150 mg) by mouth once daily with evening meal. 90 Capsule 10/14/19 25 025 Discontin ued(Reord er (E-cancel not sent)) pen tirzepatide (MOUNJARO) 10 mg/0.5 mL penIndications: Type 2 diabetes mellitus without complication, without long-term current use of insulin (HC) Inject 10 mg subcutaneous once weekly. Start after 4 weeks of 7.5 mg dosing. Continue 10 mg weekly as maintenance dose 6 mL 1 10/24/19 25 025 Discontin ued(Reord er (E-cancel not sent)) atorvastatin 10 mg tabletIndicatio ns:Type 2 diabetes mellitus without complication, without long-term current use of insulin (HC) Take 1 Tablet (10 mg) by mouth once daily. 90 Tablet 12/31/19 25 025 Discontin ued(Reord er (E-cancel not sent)) metFORMIN 500 mg Extended-Releas e tabletIndicatio ns:Type 2 diabetes mellitus without complication, without long-term current use of insulin (HC) Take 2 Tablets (1,000 mg) by mouth two times daily with meals. 180 Tablet 12/31/19 25 025 Discontin ued(Reord er (E-cancel not sent)) venlafaxine 150 mg Extended-Releas e capsuleIndicati ons:Situational mixed anxiety and depressive disorder Take 1 Capsule (150 mg) by mouth once daily with evening meal. 90 Capsule 12/31/19 25 025 Discontin ued(Reord er (E-cancel not sent)) losartan 50 mg tabletIndicatio ns:HTN (hypertension) Take 1 Tablet (50 mg) by mouth once daily. 90 Tablet 3 01/07/20 25 025 Discontin ued(Reord er (E-cancel not sent)) Active Problems Problem Noted Date Diagnosed Date Neck mass 08/04/2024 Overview (08/04/2024): Parotid mass vs. Additional nearby mass 02/2024. Working with ENT through [place] for evaluation Morbid obesity with BMI of 40.0-44.9, adult 05/0 02/2023 Type 2 diabetes mellitus wit hout complication, without long-term current use of insulin 05/27/2022 MURTAZA, 02/12/09 AHI 77 11/30/2017 High triglycerides 07/25/2011 Sensorineural hearing loss, bilateral 02/16/2009 Nystagmus 02/16/2009 Sarcoidosis 09/19/2007 Other and unspecified disc disorder of cervical region 11/27/2006 Dysthymic disorder Resolved Problems Problem Noted Date Diagnosed Date Resolved Date Screening for osteoporosis 12/12/2017 0 01/20/2023 Overview (12/12/2017): Normal 11/2017 repeat 5-7 yrs Other specified forms of hearing loss 02/16/2009 Sleep apnea 11/30/2017 Overview (07/30/2008): CPAP Encounters Date Type Department Care Team Description 01/06/2025 2:30 PM CDT Office Visit [facility] [address] [facility] [address] Bernadette Galicia PA Medication Management 01/06/2025 Travel 11/19/2024 Refill [facility] [address] [facility] [place] [address] Bernadette Galicia PA Refill Request (Alexander) from Last 3 Months Immunizations Immunization Administration Dates Next Due COVID-19 vaccine (Symonics 30mcg/0.3mL) PF, MDV 06/13/2021,05/11/2021 HepA-HepB (Twinrix) 03/09/2011 Influenza, IIV3 (Age >=3 years) 06/30/20 13,07/11/2012,07/30/2008,2006 Influenza, IIV4 07/08/2018,10/17/2016,07/23/2014 Influenza, IIV4 (=>6mos) MDV 06/28/2015 Pneumococcal Poly,23-Valent (Pneumovax) 03/09/2011 Td (Age >=7 Years) 10/07/2003,12/20/1994 Tdap 05/30/2011 Tuberculin (PPD) 11/13/2012,06/21/2010, 8 Typhoid (injectable) 03/09/2011 Yellow Fever 03/09/2011 Family History Medical History Relation Name Comments Good Health Brother 2 Good Health Brother 3 Good Health Daughter Fabiana Alcohol/Drug Father etoh Cancer-prostate Father Hypertension Father Cancer Mother local skin/pitu itary tumor Hypertension Mother Osteoporosis Mother Osteoporosis Sister 1 Good Health Sister 2 Good Health Sister 3 Good Health Sister 4 Good Health Sister 5 Good Health Sister 6 Diabetes Sister 7 Good Health Son 1 Jake Good Health Son 2 Dillan Relation Name Status Comments Brother 1 Alive Brother 2 Brother 3 Daughter Fabiana Father (Age 72) COPD, esbe stosis Mother Alive Sister 1 Alive Sister 2 Sister 3 Sister 4 Sister 5 Sister 6 Sister 7 Son 1 Jake Son 2 Dillan Social History Tobacco Use Types Packs/Day Years Used Date Smoking Tobacco: Never Smokeless Tobacco: Never Tobacco Cessation:Counseling Given: Yes Alcohol Use Standard Drinks/Week Comments No 0 (1 standard drink = 0.6 oz pur e alcohol) PHQ-2 Answer Date Recorded PHQ-2 TOTAL SCORE 0 01/06/2025 Social Connections Answer Date Recorded Do you often feel lonely or isolated from those around you? 0 01/06/2025 Financial Resource Strain Answer Date R ecorded Difficulty of Paying Living Expenses 3 01/06/2025 Difficulty of Paying Living Expenses Not on file 01/06/2025 Food Insecurity Answer Date Recorded Do you worry your food will run out before you are able to buy more? 1 01/06/2025 Transportation Needs Answer Date Record ed Does lack of transportation keep you from medica l appointments? 1 01/06/2025 Does lack of transportation keep you from work, meetings or getting things that you need? 1 01/06/2025 Housing Stability Answer Date Recorded What is your housing situation today? 1 01/06/2025 Utilities Answer Date Recorded Do you have trouble paying f or utilities (for example, heat, electricity, water, phone)? 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1 cm (5' 6.58) 05/08/2022 1:45 PM CD T Body Mass Index 42.2 05/08/2022 1:45 PM CDT Plan of Treatment Upcoming Encounters Date Type Department Care Team (Late st Contact Info) Description 02/06/2025 8:00 AM CDT Ancillary Procedure [facility] [address] [place] [address] 02/06/2025 9:15 AM CDT Orders Only [facility] [address] [place] [address] Lab, [place] [facility] Maintenance Due Date Last Done Comments Zoster (shingles) series for age 50+ (1 of 2) 2011 Pneumococcal series for age 50+ (2 of 2 - PCV) 03/09/2012 03/09/2011 Fecal testing non-DNA (FIT,FOBT,iFOBT) for age 45-75 12/10/2018 12/10/2017 Tetanus booster 05/30/2021 05/30/2011, 09/18, 12/20/1994 RSV vaccine for adults or (1 - Risk 60-74 years 1-dose series) 2021 BMI (ht and wt on same day) for age 18+ 05/08/2023 05/08/2022, 01/20/2019, 01/09/2019, Additional history exists COVID-19 vaccine series (2023- season) 2024 06/13/2021, 05/11/2021 Mammogram for age 45-75 09/18/2024 09/18/19 24, 08/22/2022, 12/10/2017, Additional history exists Influenza Vaccine (Season Ended) 2025 07/08/2018, 10/17/2016, 06/28/2015, Additional history exists Depression screening for age 12+ 01/06/2026 01/07/20 25 Lipids for age 45-75 01/06/2030 01/06/2025, 01/11/2024, 01/18/2023, Additional history exists Tdap Completed 05/30/2011 Hepatitis C screening for ag e 18-79 Completed 12/06/2017 HIV for age 15-65 Completed 08/04/2024 Procedures Procedure Name Priority Date/Time Associated Diagnosis Comments HEMOGLOBIN A1C MONITORING (POCT) Routine 01/06/2025 3:21 PM CDT Type 2 diabetes mellitus without complication, without long-term current use of insulin (HC) LIPID PANEL W REFLEX MEASURED LDL Routine 01/06/2025 3:20 PM CDT Type 2 diabetes mellitus without complication, without long-term current use of insulin (HC) COMP METABOLIC PANEL Routine 01/06/2025 3:20 PM CDT Type 2 diabetes mellitus without complication, without long-term current use of insulin (HC) URINE ALBUMIN TO CREATININE RATIO, RANDOM Routine 01/06/2025 3:19 PM CDT Type 2 diabetes mellitus without complication, without long-term current use of insulin (HC) HIV 1/2 ANTIGEN/ANTIBODY FOURTH GENERATION W/RFL (QUEST) Routine 08/04/2024 8:36 AM GREY PERCHER Type 2 diabetes mellitus without complication, without long-term current use of insulin (HC) XR MAMMO KEVIN BILAT SCREEN Routine 09/18/2023 7:27 AM GREY PERCHER Visit for screening mammogram OCCULT BLOOD IFOBT STOOL Routine 12/10/2017 8:00 AM CDT Screening for colon cancer ANTI HCV Routine 12/06/2017 12:02 PM CDT Need for hepatitis C screening test from Last 3 Months or Most Recently Relevant to Health Maintenance Results * (ABNORMAL) POCT Hemoglobin A1C Monitoring (01/06/2025 3:21 PM CDT) POC HEMOGLOBIN A1C 6.4(H) <6.0 % OF TOTAL HGB [facility] Comment: Any point of care results exhibiting inconsistency with the patient's clinical status should be repeated using a different testing method. Blood BLOOD SPECIMEN / Unknown 01/06/2025 3:21 PM CDT 01/06/2025 3:21 PM CDT us Bernadette EDWARDS CHEMISTRY Final Resu lt Performing Organization Address City/[facility]/ZIP Co de Phone Number [facility] [address] [place] [address], [place] [phone] [facility] [address] [place] [address] * (ABNORMAL) LIPID PANEL W REFLEX MEASURED LDL (01/06/2025 3:20 PM CDT) CHOLESTEROL, TOTAL 133 <200 mg/dL [facility] HDL CHOLESTEROL 44(L) > OR = 50 mg/dL [facility] TRIGLYCERIDES 175(H) <150 mg/dL [facility] LDL-CHOLESTEROL 64 mg/dL (calc) [facility] Comment: Reference range: <100 Desirable range <100 mg/dL for primary prevention; <70 mg/dL for patients with CHD or diabetic patients with > or = 2 CHD risk factors. LDL-C is now calculated using the Giacomo-Ephraim calculation, which is a validated novel method providing better accuracy than the Friedewald equation in the estimation of LDL-C. Giacomo SS et al. TERRI. 2013;310(19): 7424-1466 (http://education.[employer]/faq/CRC205) CHOL/HDLC RATIO 3.0 <5.0 (calc) [facility] NON HDL CHOLESTEROL 89 <130 mg/dL (calc) [facility] Comment: For patients with diabetes plus 1 major ASCVD risk factor, treating to a non-HDL-C goal of <100 mg/dL (LDL-C of <70 mg/dL) is considered a therapeutic option. Blood BLOOD SPECIMEN / Unknown 01/06/2025 3:20 PM CDT 01/06/2025 3:20 PM CDT Bernadette EDWARDS CHEMISTRY Final Resu lt [facility] [address] [place] [address], [facility] [address] [place] [address] * (ABNORMAL) COMP METABOLIC PANEL (01/06/2025 3:20 PM CDT) GLUCOSE 86 65 - 99 mg/dL [facility] Comment: Fasting reference interval UREA NITROGEN (BUN) 15 7 - 25 mg/dL [facility] CREATININE 0.68 0.50 - 1.05 mg/dL [facility] EGFR 98 > OR = 60 mL/min/1. 73m2 [facility] BUN/CREATININE RATIO SEE NOTE: (calc) [facility] Comment: Not Reported: BUN and Creatinine are within reference range. SODIUM 140 135 - 146 mmol/L [facility] POTASSIUM 4.3 3.5 - 5.3 mmol/L [facility] CHLORIDE 104 98 - 110 mmol/L [facility] CARBON DIOXIDE 28 20 - 32 mmol/L [facility] CALCIUM 9.8 8.6 - 10.4 mg/dL [facility] PROTEIN, TOTAL 7.0 6.1 - 8.1 g/dL [facility] ALBUMIN 4.6 3.6 - 5.1 g/dL [facility] GLOBULIN 2.4 1.9 - 3.7 g/dL (calc) [facility] ALBUMIN/GLOBULIN RATIO 1.9 1.0 - 2.5 (calc) [facility] BILIRUBIN, TOTAL 0.6 0.2 - 1.2 mg/dL [facility] ALKALINE PHOSPHATASE 62 37 - 153 U/L [facility] AST 24 10 - 35 U/L [facility] ALT 42(H) 6 - 29 U/L [facility] Blood BLOOD SPECIMEN / Unknown 01/06/2025 3:20 PM CDT 01/06/2025 3:20 PM CDT us Bernadette Galicia PA CHEMISTRY Final Resu lt Performing Organization Address [facility]/ZIP Co de Phone Number [facility] [address] [place] [address], [facility] [address] [place] [address] * URINE ALBUMIN TO CREATININE RATIO, RANDOM (01/06/2025 3:19 PM CDT) ALB RAND URINE <12.0 mg/L 01/06/2025 11:47 PM CDT [facility] CREATININE,URINE 1.41 g/L 01/07/20 11:47 PM CDT [facility] ALBUMIN TO CREATININE RATIO,RAND UR 01/06/2025 11:47 PM CDT [facility] Comment:Urine Albumin below measurement range, unable to calculate. Urine URINE SPECIMEN / Unknown Non-Blood / Unknown 01/06/2025 3:19 PM CDT 01/06/2025 3:19 PM CDT Narrative [facility] - 01/06/2025 11:47 PM CDT If Albumin to Creatinine Ratio is elevated, consider the following: Elevations seen with incipient nephropathy associated with diabetes mellitus or hypertension. Stress, exercise,hematuria, and urinary tract infection may also produce elevated results. If clinically indicated, confirm with 24 Hour Albumin to Creatinine Ratio. Bernadette EDWARDS URINE Final Resu lt Performing Organization Address City/[facility]/ZIP Co de Phone Number [facility] [address] [place] [address], * HIV 1/2 ANTIGEN/ANTIBODY FOURTH GENERATION W/RFL (QUEST) (08/04/2024 8:36 AM GREY PERCHER) HIV AG/AB, 4TH GEN NON-REACT ROSINA NON-REACT ROSINA [facility] Comment: HIV-1 antigen and HIV-1/HIV-2 antibodies were not detected. There is no laboratory evidence of HIV infection. PLEASE NOTE: This information has been disclosed to you from records whose confidentiality may be protected by state law. If your state requires such protection, then the state law prohibits you from making any further disclosure of the information without the specific written consent of the person to whom it pertains, or as otherwise permitted by law. A general authorization for the release of medical or other information is NOT sufficient for this purpose. For additional information please refer to http://education.NXT[employer]/faq/GPQ197 (This link is being provided for informational/ educational purposes only.) The performance of this assay has not been clinically validated in patients less than 2 years old. Blood BLOOD SPECIMEN / Unknown 08/04/2024 8:36 AM GREY PERCHER 08/04/2024 8:37 AM GREY PERCHER Dave Andrew MD SEND OUTS Final Result Performing Organization Address City/State/[facility] Co de Phone Number [employer] [facility] [address] [place] [address], [facility] [address] [place] [address] * XR MAMMO KEVIN BILAT SCREEN (09/18/2023 7:27 AM GREY PERCHER) Anatomical Region Laterality Modality BREASTS, Breast Left, Breast Right Bilateral Mammography Impressions 09/18/2023 4:02 PM GREY PERCHER There is no radiographic evidence for malignancy. Recommend annual mammograms. MAMMOGRAM ASSESSMENT: ACR 1 Negative PATIENTS: You will also receive a letter with your examination results in an easy to read format. If you have questions about your results, please contact your referring provider. Narrative 09/18/2023 4:02 PM GREY PERCHER For Patients: As a result of the 21st Century Cures Act, medical imaging exams and procedure reports are released immediately into your electronic medical record. You may view this report before your referring provider. If you have questions, please contact your health care provider. XR MAMMO KEVIN BILAT SCREEN [[id number]] CLINICAL HISTORY: This is an asymptomatic 63 y.o. patient. INDICATION FOR EXAM: Mammogram Screening. TECHNIQUE: CC & MLO views were obtained. This study was evaluated with the assistance of Computer-Aided Detection. Breast Tomosynthesis was used in interpretation. COMPARISON FILM: Yes 08/22/22 [facility] 12/10/17 [facility] FINDINGS: The breasts have scattered areas of fibroglandular density. There are no dominant masses, suspicious micro calcifications or areas of architectural distortion. Bernadette EDWARDS MAMMO Final Resu lt * OCCULT BLOOD IFOBT STOOL (12/10/2017 8:00 AM CDT) STOOL BLOOD ,IFOBT Negative Negative 12/10/2017 2:09 PM CDT [facility] Stool STOOL SPECIMEN / Unknown Non-Blood / Unknown 12/10/2017 8:00 AM CDT 12/10/2017 1:56 PM CDT Cierra Marie MD LABORATORY Fi nal Result [facility] [address] [place] [address], * ANTI HCV [[id number]] (12/06/2017 12:02 PM CDT) HEPATITIS C ANTIBODY Non-React rosina Non-React rosina 12/06/2017 3:38 PM CDT [facility] Comment:Antibodies to HCV no t detected; does not exclude the possibility of exposure to HCV. Blood BLOOD SPECIMEN / Unknown Venipuncture / Unknown 12/06/2017 12:02 PM CDT 12/06/2017 12:02 PM CDT Cierra Marie MD SEND OUTS Fi nal Result [facility] [address] [place] [address], from Last 3 Months or Most Recently Relevant to Health Maintenance Insurance * Guarantor: Sofia Blue Account Type Relation to Patient Date of Phone Billing Address Personal/Family Self 1960 [address] [place] [address] [place] * Guarantor: Sofia Blue Account Type Relation to Patient Date of Phone Billing Address Motor Vehicle Self 1960 [address] [place] [address] [employer] * Guarantor: [employer] Account Type Relation to Patient Date of Phone Billing Address Occ Health/Rhonda Employer 1999 ATTN A/P YAN [phone] [place] [id number] Advance Directives * Full Code (Latest Code Status on File) Date Activated Date Inactivated Comments 11/01/2018 7:25 AM 11/01/2018 1:04 PM Care Teams Real Estate Sales Agent Relationship Specialty Start Date End Date Bernadette Galicia PA [address] [place] [address] PCP - General Physician Metal Box Maker 08/03/23
[2025-01-28 09:53] VITALS: BP 117/81; PULSE 80; RESP 16; TEMP 36.3; O2SAT 95; BMI 40.4
--- NOTE | 2025-01-28 10:52 | CRLHL7_ITS ---
For Patients: As a result of the Century Cures Act, medical imaging exams and procedure reports are released immediately into your electronic medical record. You may view this report before your referring provider. If you have questions, please contact your health care provider. INDICATION: Right upper quadrant pain. TECHNIQUE: Limited right upper quadrant ultrasound examination of the abdomen was performed. Grayscale and color Doppler images were obtained. COMPARISON: None. FINDINGS: Liver: Normal in size and contour. Heterogeneous, echogenic hepatic parenchyma, compatible with diffuse hepatic steatosis. No suspicious hepatic masses. Gallbladder: Normal in size. No pericholecystic fluid. No cholelithiasis. Sonographic Ma`s sign was negative. Common bile duct: Measures 5 mm. Pancreas: Nonvisualized. Right kidney: Normal in size. No hydronephrosis. No suspicious renal masses or obstructive urinary calculus. Vascular: Visualized aorta and IVC are unremarkable. IMPRESSION: Unremarkable ultrasound examination of the right upper quadrant. No sonographic evidence of acute cholecystitis. Dictated by Rod Champion MD @ 01/28/2025 12:16:12 PM (Electronically Signed)
--- NOTE | 2025-01-28 10:53 | CRLHL7_ITS ---
For Patients: As a result of the Century Cures Act, medical imaging exams and procedure reports are released immediately into your electronic medical record. You may view this report before your referring provider. If you have questions, please contact your health care provider. INDICATION: Right upper quadrant abdominal pain COMPARISON: None TECHNIQUE: PA and lateral views of the chest were acquired FINDINGS: TUBES AND LINES: None. HEART AND MEDIASTINUM: The heart size is normal. The mediastinal contour appears normal for patient age. LUNGS AND PLEURAL SPACES: The lungs appear normal.The pleural spaces are unremarkable. OSSEOUS STRUCTURES: Age-appropriate appearance. No acute focal finding. IMPRESSION: No evidence of active pulmonary disease. No free subdiaphragmatic air. No visible cause for right upper quadrant pain on this exam. Dictated by Ricardo Ashby MD @ 01/28/2025 11:14:47 AM (Electronically Signed)
--- NOTE | 2025-01-28 10:55 | ED_ITS ---
HPI - Nausea/Vomiting/Diarrhea General Chief complaint: Nausea/Vomiting Stated complaint: upset stomach, vomit and not feeling well Time Seen by Provider: 01/28/25 10:37 History of Present Illness HPI Narrative: This 64-year-old female comes in reporting some diarrhea with nausea and vom iting. She states that she began to lose her appetite fiber 6 days ago. She be and later having some diarrhea that she states was darker and somewhat greenish colored. She had several episodes of diarrhea over the past few days and last evening had nausea with vomiting. She states that she has been taking fluids. She also reports that she is taking Mounjaro and had an increased dose a few wee ks ago. She also reports a history of sarcoidosis. She has a occasional cough over the past few months. Related Data Home Medications ?Medication ?Instructions ?Recorded ?Confirmed atorvastatin 10 mg tablet 10 mg PO QPM 10/21/23 01/28/25 fluconazole 150 mg tablet mg PO 10/21/23 metformin 500 mg tablet 1,000 mg PO BID 10/21/23 01/28/25 venlafaxine 150 mg 150 mg PO QPM 10/21/23 01/28/25 capsule,extended release 24 hr losartan 50 mg tablet 50 mg PO DAILY 01/28/25 01/28/25 tirzepatide 10 mg/0.5 mL 10 mg subcut 01/28/25 subcutaneous pen injector (Mounjaro) Previous Rx's ?Medication ?Instructions ?Recorded ondansetron HCl 4 mg tablet 4 mg PO Q6H #10 tabs 01/28/25 Allergies Allergy/AdvReac Type Severity Reaction Status Date / Time adhesive tape Allergy Mild hives, Verified 10/21/23 09:15 itchy Review of Systems Status of ROS: Reports: 10 or more systems reviewed and unremarkable except as noted in History and below Narrative: Constitutional: No fevers, no weight gain or loss. Eyes: No discharge. No vision changes. HENT: No congestion, no sore throat, no ear pain. Cardiovascular: No chest pain, no palpitations. Respiratory: No shortness of breath, no wheezes. Occasional cough. Gastrointestinal: Some episodes of mild right upper quadrant pain. Diarrhea with some nausea and vomiting as described above. Genitourinary: No dysuria, no hematuria. Musculoskeletal: Normal range of motion. Skin: No rashes, no pruritis. Neurological: No dizziness, weakness, sensory change, speech change. Endo/Heme/Allergies: No bruising or bleeding. No polydipsia. Pysch: no suicidality, no anxiety, no insomnia. All other systems reviewed and are negative. [facility] Social History Smoking Status: Never smoker How often do you have a drink containing alcohol: never How often do you have six or more drinks on one occasion: Never AUDIT-C Alcohol total score: 0 Non-prescribed substance use: denies use Exam Narrative: Exam Narrative: Constitutional: Well-developed, well-nourished, no acute distress. HEENT: Normocephalic, atraumatic. Neck: Normal range of motion. Nontender. Supple. Heart: Regular. No murmurs. Normal rate. Intact distal pulses. Lungs: Clear to auscultation. No chest discomfort. No wheezes, rhonchi, or rales. Abdomen: Normal bowel sounds. Nontender. No rebound tenderness. Genitalia: Deferred. Back: No midline tenderness. Normal range of motion. Extremities: Normal range of motion. No injury. Skin: Intact. No rash. Warm. No erythema or pallor. Neurologic: No altered sensation. No weakness. Alert and oriented. Psychiatric: No suicidality. No anxiety or depression. No insomnia. Nursing notes and vitals signs are reviewed. Const: Vital Signs, click to edit/add: Vital Signs - 24 hr 01/28/25 09:53 Temperature 97.3 F L Pulse Rate [Pulse Oximeter] 80 Respiratory Rate 16 Blood Pressure [Ri ght Upper Arm] 117/81 Pulse Oximetry 95 Oxygen Delivery Me thod Room Air Course Vital Signs Vital signs: Initial Vital Signs Temperature 97.3 F L 01/28/25 09:53 Temperature Source Temporal Artery Scan 01/28/25 09:53 Pulse Rate 80 01/28/25 09:53 Respiratory Rate 16 01/28/25 09:53 Blood Pressure 117/81 01/28/25 09:53 Blood Pressure Mean 93 01/28/25 09:53 Blood Pressure Position Sitting 01/28/25 09:53 Pulse Oximetry 95 01/28/25 09:53 Oxygen Delivery Method Room Air 01/28/25 09:53 Vital Signs Temperature 97.3 F L 01/28/25 09:53 Pulse Rate 80 01/28/25 09:53 Respiratory Rate 16 01/28/25 09:53 Blood Pressure 117/81 01/28/25 09:53 Pulse Oximetry 95 01/28/25 09:53 Oxygen Delivery Method Room Air 01/28/25 09:53 Temperature 97.3 F L 01/28/25 09:53 Pulse Rate 80 01/28/25 09:53 Respiratory Rate 16 01/28/25 09:53 Blood Pressure 117/81 01/28/25 09:53 Pulse Oximetry 95 01/28/25 09:53 Oxygen Delivery Method Room Air 01/28/25 09:53 Medications Administered Medications: Discontinued Medications Generic Name Dose Route Start Last Admin Trade Name Freq PRN Reason Stop Dose Admin Sodium Chloride 1,000 mls @ 1,000 mls/hr 01/28/25 11:00 01/28/25 11:36 0.9 % Sodium Chloride 1000 Ml IV 01/28/25 11:59 1,000 mls/hr .Q1H ENRIQUETA Administration Ondansetron HCl 4 mg 01/28/25 10:52 01/28/25 11:36 Ondansetron 2 Mg/Ml Inj IVP 01/28/25 10:53 Not Given ONCE ONE MDM - Nausea/Vomiting/Diarrhea MDM Narrative Medical decision making narrative: This patient comes in reporting some diarrhea and vomiting episodes as described above. An IV was established where she received a L of normal saline and 4 mg of Zofran. This brought relief to her symptoms. Lab results returned with reassuring findings. Additionally a chest x-ray and ultrasound of the right upper quadrant also show normal findings. The patient states that she is feeling better. She did increase her Mounjaro does somewhat recently and this may account for her symptoms. She may have a rather nonspecific gastroenteritis. In any event she is okay to be discharged home and is feeling better. I did provide a prescription for Zofran. Lab Data Labs: Lab Results 01/28/25 Range/Units Unknown WBC 5.83 (4.50-11.00) K/uL RBC 5.07 (4.00-5.20) m/uL Hgb 14.7 (12.0-16.0) gm/dL Hct 45.3 (33.0-51.0) % MCV 89 (80-100) fL MCH 29 (26-34) pg MCHC 33 (32-36) gm/dL RDW Coeff of Apstora 12.9 (11.5-15.5) % Plt Count 283 (140-440) K/uL Neut % (Auto) 64.4 (42.0-72.0) % Lymph % (Auto) 28.5 (20-44) % [place] % (Auto) 4.1 (0.0-11.0) % Eos % (Auto) 2.6 (0.0-7.0) % Baso % (Auto) 0.2 (0.0-3.0) % Neut # (Auto) 3.76 (1.7-7.0) K/uL Lymph # (Auto) 1.66 (0.90-2.90) K/uL [place] # (Auto) 0.20 (0.00-0.90) K/UL Eos # (Auto) 0.15 (0.00-0.50) K/uL Baso # (Auto) 0.01 (0.00-0.30) K/uL Abs Immat Gran (auto) 0.01 (0.00-0.30) K/uL Imm/Tot Granulo (auto) 0.2 % Sodium 141 (135-149) mmol/L Potassium 3.8 (3.6-5.1) mmol/L Chloride 104 (96-114) mmol/L Carbon Dioxide 29 (20-32) mmol/L Anion Gap 8 (7-15) mEq/L BUN 19 (7-30) mg/dL Creatinine 0.8 (0.5-1.5) mg/dL Estimated Creat Clear 56.00 Estimated GFR 83 ml/min Glucose 104 (60-115) mg/dL Calcium 9.4 (8.4-10.6) mg/dL Total Bilirubin 0.9 (0.1-1.5) mg/dL Direct Bilirubin 0.2 (0.0-0.5) mg/dL AST 34 (12-35) U/L ALT 56 H (4-35) U/L Alkaline Phosphatase 67 (40-150) U/L Total Protein 7.2 (6.0-8.3) g/dL Albumin 4.5 (3.3-5.0) g/dL Imaging Data Chest x-ray: Radiologist's impression: No evidence of active pulmonary disease. No free subdiaphragmatic air. No visible cause for right upper quadrant pain on this exam. Discharge Plan Discharge Clinical Impression: Gastroenteritis Patient Disposition: Home, Self-Care Condition: Stable Additional Instructions: Take fluids and increase diet otherwise as tolerated. Use medicine as needed and directed for nausea symptoms. Follow up with MD return if worsening. Prescriptions: New ondansetron HCl 4 mg tablet 4 mg PO Q6H Qty: 10 0RF No Action losartan 50 mg tablet 50 mg PO DAILY Mounjaro 10 mg/0.5 mL pen injector 10 mg subcut metformin 500 mg tablet 1,000 mg PO BID atorvastatin 10 mg tablet 10 mg PO QPM fluconazole 150 mg tablet PO venlafaxine 150 mg capsule,extended release 24hr 150 mg PO QPM Follow Up/Referrals: Bernadette Galicia PA-C [Primary Care Provider] - Stand Alone Forms: i[employer] Info Instructions
[2025-01-28 11:22] LABS: Basophils Absolute Auto 0.01 K/uL (0.00-0.30); Basophils Percent Auto 0.2 % (0.0-3.0); Eosinophils Absolute Auto 0.15 K/uL (0.00-0.50); Eosinophils Percent Auto 2.6 % (0.0-7.0); Hematocrit 45.3 % (33.0-51.0); Hemoglobin* 14.7 gm/dL (12.0-16.0); Immature Granulocytes Abs Auto 0.01 K/uL (0.00-0.30); Immature Granulocytes Pct Auto 0.2 %; Lymphocytes Absolute Auto 1.66 K/uL (0.90-2.90); Lymphocytes Percent Auto 28.5 % (20-44); Mean Corpuscular HGB Conc 33 gm/dL (32-36); Mean Corpuscular Hemoglobin 29 pg (26-34); Mean Corpuscular Volume 89 fL (80-100); Monocytes Percent Auto 4.1 % (0.0-11.0); Neutrophils Absolute Auto 3.76 K/uL (1.7-7.0); Neutrophils Percent Auto 64.4 % (42.0-72.0); Platelet Count* 283 K/uL (140-440); RDW Coefficient of Variation % 12.9 % (11.5-15.5); Red Blood Count 5.07 m/uL (4.00-5.20); White Blood Count* 5.83 K/uL (4.50-11.00)
[2025-01-28 11:25] LABS: Slide Review Reflex No
--- OUTSIDE RECORDS SUMMARY | 2025-01-28 11:35 | XMS_ITS | Clinical Summary ---
Author Organization [facility] Address [address] [place] [address] Care Team Providers Care Actuary Manager Name Role Phone Unavailable Primary Care Provider Unavailabl e Source Comments Patient records contain information from all sites at [facility]. For routine questions regarding patient records, call [phone] during business hours, M-F 8:00 AM - 5:00 PM Central Time. Record requests for emergency care only can be directed to [phone] at any time.[facility] Allergies No known active allergies Medications methylPREDNISolo ne (MedroL DosePak) 4 mg tablet Follow package directions. 21 tablet 04/28/2024 Active amoxicillin-pot clavulanate (Augmentin) 875-125 mg per tablet Take 1 tablet by mouth 2 (two) times a day. 20 tablet 04/28/2024 Active Social History Tobacco Use Types Packs/Day Years Used Date Smoking Tobacco: Never Assessed [facility] Utilities Answer Date Recorded In the past 12 months has e [employer], oil, or water [employer] threatened to shut off services in your [...] your living situation today? I have a [facility] place to live 08/11/2024 Comments Unknown Sex and Gender Information Value Date Recorded Sex Assigned at Female 08/11/2024 2:20 AM MORTGAGE COLLECTOR Legal Sex Female 11:51 AM MORTGAGE COLLECTOR Gender Identity Female 08/11/2024 2:20 AM MORTGAGE COLLECTOR Sexual Orientation Straight 08/11/2024 2: 20 AM MORTGAGE COLLECTOR Plan of Treatment Health Maintenance Due Date [...] to complete this topic Insurance [address] [place] [address] [facility]
--- OUTSIDE RECORDS SUMMARY | 2025-01-28 11:35 | XMS_ITS | Clinical Summary ---
Author Organization [place] Address Formerly [facility] 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 Gender Identity Not on file Sexual Orientation [...] - 144 mmol/L 05/27/2020 1:27 PM CDT [facility] Potassium 4.2 3.4 - 5.3 mmol/L 05/27/2020 1:27 [facility] Chloride 104 94 - 109 mmol/L 05/27/2020 1:27 PM T [facility] Carbon Dioxide 27 20 - 32 mmol/L 05/27/2020 1:32 PM T [facility] Anion Gap 6 3 - 14 mmol/L 05/27/2020 1:32 PM T [facility] Glucose 226(H) 70 - 99 mg/dL 05/27/2020 1:32 PM T [facility] Urea Nitrogen 12 7 - 30 mg/dL 05/27/2020 1:32 PM T [facility] Creatinine 0.69 0.52 - 1.04 mg/dL 05/27/2020 1:32 PM [facility] GFR Estimate >90 >60 mL/min/{1. 73_m2} 05/27/2020 1:32 PM T [facility] Comment: Non GFR Calc Starting 09/03/2018, serum creatinine based estimated GFR (eGFR) will be calculated using the Chronic Kidney Disease Epidemiology Collaboration (CKD-EPI) equation. GFR Estimate If Black >90 >60 mL/min/{1. 73_m2} 05/27/2020 1:32 PM T [facility] Comment: GFR Calc Starting 09/03/2018, serum creatinine based estimated GFR (eGFR) will be calculated using the Chronic Kidney Disease Epidemiology Collaboration (CKD-EPI) equation. Calcium 8.9 8.5 - 10.1 mg/dL 05/27/2020 1:32 PM T [facility] Blood specimen (specimen) 05/27/2020 1:02 PM CDT 05/27/2020 1:12 PM CDT us Garrett Richardson DO LAB - BLOOD ORDERABLES F inal Result [facility] [address] [place] [address], [facility] [phone] from Last 3 Months or Most Recently Relevant to Health Maintenance Insurance [id number] [place] [id number] [place] Advance Directives For more information, please contact: [phone] * Full Code (Latest Code Status on File) Date Activated Date Inactivated Comments 12/27/2019 12:01 PM 05/27/2020 12:23 PM Question Answer Comments Code status determined by: Discussion with jackson nt/legal decision maker Care Teams Live Truck Operator Relationship Specialty Start Date End Date Cierra Marie MD PCP - General Family Practice 10/18/14
--- OUTSIDE RECORDS SUMMARY | 2025-01-28 11:35 | XMS_ITS | Clinical Summary ---
Author Organization [facility] Address [address] [place] [address] Care Team Providers Care Button Bradder Name Role Phone Bernadette Galicia Primary Care Provider [phone] Allergies Active Allergy Reactions Criticality Noted Date [...] nearby mass 02/2024. Working with ENT through [place] for evaluation Morbid obesity with BMI of [...] Description 01/06/2025 2:30 PM CDT Office Visit [facility] [address] [facility] [address] Bernadette Galicia PA Medication Management 01/06/2025 Travel 11/19/2024 Refill [facility] [address] [place] [address] Bernadette Galicia PA Refill Request (Alexander) from Last 3 Months Immunizations Immunization Administration Dates Next Due COVID-19 vaccine ([employer] 30mcg/0.3mL) PF, MDV 06/13/2021,05/11/2021 HepA-HepB (Twinrix) 03/09/2011 [...] on file Legal Sex Female 7:01 AM HOSPITAL PRODUCT SPECIALIST Gender Identity Not on file Sexual Orientation Not on file 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 Not on file Not [...] 36.7 C (98 F) 09/02/2024 6:57 AM HOSPITAL PRODUCT SPECIALIST Respiratory Rate 16 07/16/2022 9:22 AM CDT [...] Description 02/06/2025 8:00 AM CDT Ancillary Procedure [facility] [address] [place] [address] 02/06/2025 9:15 AM CDT Orders Only [facility] [address] [place] [address] Lab, [place] Health Maintenance Due Date Last [...] GENERATION W/RFL ([facility]) Routine 08/04/2024 8:36 AM HOSPITAL PRODUCT SPECIALIST Type 2 diabetes mellitus without complication, without long-term current use of insulin (HC) XR MAMMO KEVIN BILAT SCREEN Routine 09/18/2023 7:27 AM HOSPITAL PRODUCT SPECIALIST Visit for screening mammogram OCCULT BLOOD IFOBT STOOL Routine 12/10/2017 8:00 AM CDT Screening for colon cancer ANTI HCV Routine 12/06/2017 12:02 PM CDT Need for hepatitis C screening test from Last 3 Months or Most Recently Relevant to Health Maintenance Results * (ABNORMAL) POCT Hemoglobin A1C Monitoring (01/06/2025 3:21 PM CDT) POC HEMOGLOBIN A1C 6.4(H) <6.0 % OF TOTAL HGB [facility] Comment: Any point of care results exhibiting inconsistency with the patient's clinical status should be repeated using a different testing method. Blood BLOOD SPECIMEN / Unknown 01/06/2025 3:21 PM CDT 01/06/2025 3:21 PM CDT us Bernadette EDWARDS CHEMISTRY Final Resu lt Performing Organization Address City/[facility]/ZIP Co de Phone Number [facility] [address] [place] [address], [place] [phone] [facility] [address] [place] [address] * (ABNORMAL) LIPID PANEL W REFLEX MEASURED [...] LDL-C. Giacomo SS et al. TERRI. 2013;310(19): 1352-4526 (http://education.Flamsred/faq/VTB140) CHOL/HDLC RATIO 3.0 <5.0 (calc) [facility] [...] Bernadette EDWARDS CHEMISTRY Final Resu lt [facility] [address] [place] [address], [facility] [address] [place] [address] * (ABNORMAL) COMP METABOLIC PANEL (01/06/2025 3:20 PM CDT) GLUCOSE 86 65 - 99 mg/dL [facility] Comment: Fasting reference interval UREA NITROGEN (BUN) 15 7 - 25 mg/dL [facility] CREATININE 0.68 0.50 - 1.05 mg/dL [facility] EGFR 98 > OR = 60 mL/min/1. 73m2 [facility] BUN/CREATININE RATIO SEE [...] CHEMISTRY Final Resu lt Performing Organization Address [facility]/ZIP Co de Phone Number [facility] [address] [place] [address], [facility] [address] [place] [address] * URINE ALBUMIN TO CREATININE RATIO, RANDOM (01/06/2025 3:19 PM CDT) ALB RAND URINE <12.0 mg/L 01/06/2025 11:47 PM CDT [facility] CREATININE,URINE 1.41 g/L 01/07/20 11:47 PM CDT [facility] ALBUMIN TO CREATININE RATIO,RAND UR 01/06/2025 11:47 PM CDT [facility] Comment:Urine Albumin below measurement range, unable to calculate. Urine URINE SPECIMEN / Unknown Non-Blood / Unknown 01/06/2025 3:19 PM CDT 01/06/2025 3:19 PM CDT Narrative [facility] - 01/06/2025 11:47 PM CDT If Albumin to Creatinine Ratio is elevated, consider the following: Elevations seen with incipient nephropathy associated with diabetes mellitus or hypertension. Stress, exercise,hematuria, and urinary tract infection may also produce elevated results. If clinically indicated, confirm with 24 Hour Albumin to Creatinine Ratio. Bernadette EDWARDS URINE Final Resu lt Performing Organization Address City/[facility]/ZIP Co de Phone Number [facility] [address] [place] [address], * HIV 1/2 ANTIGEN/ANTIBODY FOURTH GENERATION W/RFL ([facility]) (08/04/2024 8:36 AM HOSPITAL PRODUCT SPECIALIST) HIV AG/AB, 4TH GEN NON-REACT ROSINA NON-REACT ROSINA [facility] Comment: HIV-1 antigen and HIV-1/HIV-2 antibodies were [...] purpose. For additional information please refer to http://education.Parametric/faq/PPZ869 (This link is being provided for informational/ educational purposes only.) The performance of this assay has not been clinically validated in patients less than 2 years old. Blood BLOOD SPECIMEN / Unknown 08/04/2024 8:36 AM HOSPITAL PRODUCT SPECIALIST 08/04/2024 8:37 AM HOSPITAL PRODUCT SPECIALIST Dave Andrew MD SEND OUTS Final Result Performing Organization Address City/State/[facility] Co de Phone Number [employer] [facility] [address] [place] [address], [facility] [address] [place] [address] * XR MAMMO KEVIN BILAT SCREEN (09/18/2023 7:27 AM HOSPITAL PRODUCT SPECIALIST) Anatomical Region Laterality Modality BREASTS, Breast Left, Breast Right Bilateral Mammography Impressions 09/18/2023 4:02 PM HOSPITAL PRODUCT SPECIALIST There is no radiographic evidence for malignancy. Recommend annual mammograms. MAMMOGRAM ASSESSMENT: ACR 1 Negative PATIENTS: You will also receive a letter with your examination results in an easy to read format. If you have questions about your results, please contact your referring provider. Narrative 09/18/2023 4:02 PM HOSPITAL PRODUCT SPECIALIST For Patients: As a result of the 21st Century Cures Act, medical imaging exams and procedure reports are released immediately into your electronic medical record. You may view this report before your referring provider. If you have questions, please contact your health care provider. XR MAMMO KEVIN BILAT SCREEN [[id number]] CLINICAL HISTORY: This is an asymptomatic 63 y.o. patient. INDICATION FOR EXAM: Mammogram Screening. TECHNIQUE: CC & MLO views were obtained. This study was evaluated with the assistance of Computer-Aided Detection. Breast Tomosynthesis was used in interpretation. COMPARISON FILM: Yes 08/22/22 [facility] 12/10/17 [facility] FINDINGS: The breasts have scattered areas of fibroglandular density. There are no dominant masses, suspicious micro calcifications or areas of architectural distortion. Bernadette EDWARDS MAMMO Final Resu lt * OCCULT BLOOD IFOBT STOOL (12/10/2017 8:00 AM CDT) STOOL BLOOD ,IFOBT Negative Negative 12/10/2017 2:09 PM CDT [facility] Stool STOOL SPECIMEN / Unknown Non-Blood / Unknown 12/10/2017 8:00 AM CDT 12/10/2017 1:56 PM CDT Cierra Marie MD LABORATORY Fi nal Result [facility] [address] [place] [address], * ANTI HCV [[id number]] (12/06/2017 12:02 PM CDT) HEPATITIS C ANTIBODY Non-React rosina Non-React rosina 12/06/2017 3:38 PM CDT [facility] Comment:Antibodies to HCV no t detected; does not exclude the possibility of exposure to HCV. Blood BLOOD SPECIMEN / Unknown Venipuncture / Unknown 12/06/2017 12:02 PM CDT 12/06/2017 12:02 PM CDT Cierra Marie MD SEND OUTS Fi nal Result [facility] [address] [place] [address], from Last 3 Months or Most Recently Relevant to Health Maintenance Insurance * Guarantor: Sofia [employer] Account Type Relation to Patient Date of Phone Billing Address Personal/Family Self 1960 [address] [place] [address] [place] * Guarantor: [employer]ia [employer] Account Type Relation to Patient Date of Phone Billing Address Motor Vehicle Self 1960 [address] [place] [address] [employer] * Guarantor: [employer] Account Type Relation to Patient Date of Phone Billing Address Occ Health/Rhonda Employer 1999 ATTN A/P YAN [address] [place] [id number] Advance Directives * Full Code (Latest Code Status on File) Date Activated Date Inactivated Comments 11/01/2018 7:25 AM 11/01/2018 1:04 PM Care Teams Button Bradder Relationship Specialty Start Date End Date Bernadette Galicia PA [address] [place] [address] PCP - General Physician Bag Adjuster 08/03/23
[2025-01-28] MEDS: 0.9 % SODIUM CHLORIDE 1000 ml 1,000 ML IV (11:36)
[2025-01-28 11:38] LABS: Albumin* 4.5 g/dL (3.3-5.0); Chloride* 104 mmol/L (96-114)
[2025-01-28 11:39] LABS: Potassium* 3.8 mmol/L (3.6-5.1); Sodium* 141 mmol/L (135-149)
[2025-01-28 11:41] LABS: Alanine Aminotransferase* 56 U/L (4-35); Anion Gap 8 mEq/L (7-15); Aspartate Amino Transferase* 34 U/L (12-35); Blood Urea Nitrogen* 19 mg/dL (7-30); Carbon Dioxide* 29 mmol/L (20-32); Creatinine* 0.8 mg/dL (0.5-1.5); Estimated Glomerular Filt Rate 83 ml/min
[2025-01-28 11:42] LABS: Alkaline Phosphatase* 67 U/L (40-150); Bilirubin Direct* 0.2 mg/dL (0.0-0.5); Bilirubin Total* 0.9 mg/dL (0.1-1.5); Calcium* 9.4 mg/dL (8.4-10.6); Glucose* 104 mg/dL (60-115); Total Protein* 7.2 g/dL (6.0-8.3)
== END 2025-01-28 12:25 | disposition home or self-care (01) ==
PROVIDERS: Emergency Provider Emergency Medicine Emergency Medical Services; PCP Physician Assistant
DX: K52.9 Noninfective gastroenteritis and colitis, unspecified (principal)
CPT/HCPCS: 36415; 71046; 76705; 80048; 80076; 85025; 96374; 99284; J7030